=== PATIENT | female | born 1955 | race Hispanic/Latino ===

== ENCOUNTER 2017-08-31 14:24 | Emergency (ER) | payer SELFPAY ==
[~2017-08-31] VITALS: Ht 154.9 cm; Wt 75.3 kg
[2017-08-31] MEDS ORDERED: CLONIDINE HCL 0.1 MG TAB PO ONE (15:15)
[2017-08-31 16:17] VITALS: BP 181/93
== END 2017-08-31 16:49 | disposition home or self-care (01) ==
LOC: FSED 14:24
DX: I10 Essential (primary) hypertension (principal); L03.012 Cellulitis of left finger
CPT/HCPCS: 70450; 80048; 81003; 85025; 99284